=== PATIENT | female | born 1960 | race Caucasian/White ===

== ENCOUNTER → 2019-08-06 11:55 | Outpatient (BNVA) | payer BC, SELFPAY | PROVIDERS: PCP Nurse Practitioner Family; Referring Provider Nurse Practitioner Family; Visit Provider Nurse Practitioner Family | DX: N39.0 Urinary tract infection, site not specified (principal); Z87.442 Personal history of urinary calculi | CPT/HCPCS: 80053; 81001 ==

== ENCOUNTER 2019-09-17 07:36 | Outpatient (CLI) | payer BC, SELFPAY ==
--- NOTE | 2019-09-17 07:30 | XRR_ITS ---
PROCEDURE INFORMATION: Exam: XR Abdomen, 1 View Exam date and time: 09/17/2019 7:50 AM Age: 58 years old Clinical indication: Condition or disease; Kidney or ureter condition; Calculus (stone) in kidney; Prior surgery; Surgery date: 6+ months; Surgery type: . Hernia; Patient HX: Follow up issue for 3 months; Additional info: Kidney stones TECHNIQUE: Imaging protocol: XR of the abdomen. Views: Frontal supine view of the abdomen. 1 View. COMPARISON: No relevant prior studies available. FINDINGS: Gastrointestinal tract: Normal. No bowel dilation. Organs: 5 mm calcification projecting to the right of the L2 body may be situated within the renal pelvis. Bones/joints: Unremarkable. XR/XR KUB [id number] IMPRESSION: 5 mm suspected right renal pelvic calcification.
== END 2019-09-17 07:37 | disposition home or self-care (01) ==
LOC: RAD 07:38
PROVIDERS: PCP Nurse Practitioner Family; Visit Provider Urology
DX: N20.0 Calculus of kidney (principal); N39.0 Urinary tract infection, site not specified
CPT/HCPCS: 74018; 81001

== ENCOUNTER 2019-12-04 09:08 | Outpatient (CLI) | payer BC, SELFPAY ==
--- NOTE | 2019-12-04 09:19 | MM_ITS ---
WS: [id number] BILATERAL DIGITAL SCREENING MAMMOGRAPHY WITH CAD CLINICAL INFORMATION: SCREENING HISTORY: Screening mammogram. No current complaints. COMPARISON: TECHNIQUE: Bilateral CC and MLO views. FINDINGS: Scattered fibroglandular densities bilaterally. No suspicious focal mass, asymmetry, calcifications, or architectural distortion. No evidence of malignancy. Vascular calcification. MM/[place] [id number] IMPRESSION: BI-RADS: 2-Benign FOLLOW UP: 1 Year Follow-up Recommend return to annual screening mammography.
== END 2019-12-04 09:09 | disposition home or self-care (01) ==
LOC: RADSHAW 09:11
PROVIDERS: PCP Nurse Practitioner Family; Visit Provider Nurse Practitioner Family
DX: Z12.31 Encounter for screening mammogram for malignant neoplasm of breast (principal)
CPT/HCPCS: 77067

== ENCOUNTER 2019-12-18 07:08 | Outpatient (CLI) | payer BC, SELFPAY ==
--- NOTE | 2019-12-18 07:30 | XR_ITS ---
WS: [id number] KUB, 12/18/2019 Clinical Data: kidney stones Comparison: KUB, 09/17/2019. Findings: There is a questionable calcification adjacent to the lateral tip of the right L2 transverse process unchanged. The kidneys do not show any overlying calcifications. There are phleboliths in the true pe lvis. There is a moderate amount of fecal material in the colon. XR/XR KUB [id number] Impression: Possible right renal pelvic calcification unchanged.
== END 2019-12-18 07:09 | disposition home or self-care (01) ==
LOC: RAD 07:10
PROVIDERS: PCP Nurse Practitioner Family; Visit Provider Urology
DX: N20.0 Calculus of kidney (principal)
CPT/HCPCS: 74018; 81001

== ENCOUNTER 2020-01-01 09:15 | Outpatient (CLI) | payer BC, SELFPAY ==
--- NOTE | 2020-01-01 08:45 | US_ITS ---
WS: [id number] RENAL ULTRASOUND HISTORY: Renal calculus. COMPARISON: None available. TECHNIQUE: 2-D and color Doppler imaging of the kidney submitted. Right kidney: 8.6 cm x 6.4 cm x 4.9 cm. Mild atrophy of the kidney. No obstruction or mass. Left kidney: 11.7 cm x 5.6 cm x 5.5 cm. Normal size kidney. No hydronephrosis. Exophytic cortical cyst from the upper pole measures 1.7 x 1.6 x 1.3 cm. No calcification identified. Aorta: Normal. Urinary Bladder: Normal distention. US/US renal BI* [id number] IMPRESSION: 1. No renal obstruction or calcification identified. 2. Mild atrophy RIGHT kidney.
== END 2020-01-01 09:16 | disposition home or self-care (01) ==
PROVIDERS: PCP Nurse Practitioner Family; Visit Provider Urology
DX: Z87.442 Personal history of urinary calculi (principal); N20.0 Calculus of kidney; N26.1 Atrophy of kidney (terminal); N30.20 Other chronic cystitis without hematuria
CPT/HCPCS: 76770; 81001

== ENCOUNTER 2021-04-08 12:23 | Outpatient (CLI) | payer BC, SELFPAY ==
--- NOTE | 2021-04-08 | CT_ITS ---
WS: [id number] CT SINUSES TECHNIQUE: Noncontrast CT of the paranasal sinuses with coronal and sagittal reformatted images. CLINICAL INFORMATION: CHRONIC RECURRING SINUSITIS COMPARISON: None. DLP: 415.[address] scans at [facility] use at least one of these dose optimization techniques: automated e xposure control; mA and/or kV adjustment per patient size (includes targeted exams where dose is matc hed to clinical indication); or iterative reconstruction. FINDINGS: Right to left nasal septal radiation measuring 3 mm. Mild narrowing of the ostiomeatal units bilatera lly with mucosal thickening on the left. Inspissated secretions with near complete opacification of t he left maxillary sinus. Mild mucosal thickening in the ethmoid air cells. Right maxillary sinus is w ell aerated. Mastoid air cells are well aerated. Sphenoid sinus is well aerated. Frontal sinuses are well aerated. Normal parapharyngeal fat. Normal posterior nasopharynx. Partially visualized intracranial contents a ppear normal. CT/CT sinus wo con* [id number] IMPRESSION: 1. Right to left nasal septal deviation measuring 3 mm. 2. Near complete opacification left maxillary sinus with inspissated secretion s. Narrowing of the left ostiomeatal unit. 3. Right maxillary sinus, frontal sinuses, and sphenoid sinuses are well aerat ed. 4. Trace mucosal thickening in the ethmoid air cells. 5. Mastoid air cells are well aerated. 6. Normal visualized posterior nasopharynx.
== END 2021-04-08 12:24 | disposition home or self-care (01) ==
PROVIDERS: PCP Nurse Practitioner Family; Visit Provider Nurse Practitioner Family
DX: J32.9 Chronic sinusitis, unspecified (principal); J34.2 Deviated nasal septum
CPT/HCPCS: 70486

== ENCOUNTER 2021-04-25 10:32 | Outpatient (CLI) | payer BC, SELFPAY ==
--- NOTE | 2021-04-25 13:03 | ECG_ITS ---
[facility] Test Date: 2021-04-25 Pat Name: Eloisa Ron Department: Room: Gender: Female Doorkeeper: Loc : 1960 Requested By: Blaze Dewitt Order Number: [id number] Dominique MD: Marleny Richardson M.D. Measurements Intervals [place] Rate: 67 P: 0 TN: 165 QRS: -29 QRSD: 139 T: -18 QT: 440 QTc: 467 Interpretive Statements SINUS RHYTHM BORDERLINE LEFT AXIS DEVIATION [QRS AXIS < -20] RIGHT BUNDLE BRANCH BLOCK [120+ ms QRS DURATION, UPRIGHT V1, 40+ ms S IN I/aVL/V4/V5/V6] No previous ECG available for comparison Electronically Signed On 04-26-2021 5:31:25 ASSISTANT COACH by Marleny Richardson M.D. [email or web address]
== END 2021-04-25 10:33 | disposition home or self-care (01) ==
PROVIDERS: PCP Nurse Practitioner Family; Visit Provider Specialist
DX: J01.91 Acute recurrent sinusitis, unspecified (principal); I45.10 Unspecified right bundle-branch block
CPT/HCPCS: 93005

== ENCOUNTER 2022-12-19 10:35 | Outpatient (CLI) | payer BC, SELFPAY ==
--- NOTE | 2022-12-19 10:45 | XR_ITS ---
WS: [id number] EXAMINATION: XR shoulder RT min 2V* [id number] REASON FOR EXAM: R SHOULDER PAIN COMPARISON: None available. ORDER DATE: 12/19/2022 10:58 AM TECHNIQUE: 3 views of the right shoulder were obtained. X-RAY FINDINGS: No fractures or dislocations. Normal motion of the shoulder with internal/external rotation. No degenerative changes. Acromioclavicular joint appears unremarkable. Limited visualization of the adjacent hemithorax is unremarkable. IMPRESSION: No fractures or dislocations of the right shoulder.
== END 2022-12-19 10:36 | disposition home or self-care (01) ==
PROVIDERS: PCP Nurse Practitioner Family; Visit Provider Nurse Practitioner Family
DX: M25.511 Pain in right shoulder (principal)
CPT/HCPCS: 73030